=== PATIENT | female | born 1950 | race Hispanic/Latino ===

== ENCOUNTER 2017-10-02 08:51 | Outpatient (CLI) | payer OTHER | END 2017-10-02 08:52 | disposition home or self-care (01) | LOC: BICMAMMO 08:51 | PROVIDERS: ATTEND Physician Assistant | DX: Z12.31 Encounter for screening mammogram for malignant neoplasm of breast (principal) | CPT/HCPCS: 77063; 77067 ==

== ENCOUNTER 2018-10-19 11:16 | Outpatient (CLI) | payer MEDICARE, OTHER ==
--- NOTE | 2018-10-19 13:03 | MMO ---
Bilateral MAMMO Bilat Screen [facility]. CLINICAL HISTORY: Patient is 67 years old and is seen for screening. The patient has no family history of breast cancer. The patient has no personal history of cancer. The patient has a history of right Excisional Biopsy more than 10 years ago - benign. VIEWS: The views performed were: bilateral craniocaudal with tomosynthesis and bilateral mediolateral oblique with tomosynthesis. FILMS COMPARED: The present examination has been compared to prior imaging studies performed at [facility] on 07/07/2013, 07/10/2014, 07/31/2015, 09/19/2016 and 10/02/2017. MAMMOGRAM FINDINGS: There are scattered fibroglandular densities. Finding 1: There is a stable nodule seen in the left breast. Finding 2: There are stable post operative changes seen in the right breast. A biopsy clip is seen in the right breast. There are no suspicious masses, suspicious calcifications, or new areas of architectural distortion. IMPRESSION: THERE IS NO MAMMOGRAPHIC EVIDENCE OF MALIGNANCY. A ROUTINE FOLLOW-UP MAMMOGRAM IN 1 YEAR IS RECOMMENDED. THE RESULTS OF THIS EXAM WERE SENT TO THE PATIENT. ACR BI-RADS Category 2 - Benign finding MAMMOGRAPHY NOTE: 1. A negative mammogram report should not delay a biopsy if a dominant of clinically suspicious mass is present. 2. Approximately 10% to 15% of breast cancers are not detected by mammography. 3. Adenosis and dense breasts may obscure an underlying neoplasm.
== END 2018-10-19 11:17 | disposition home or self-care (01) ==
LOC: BICMAMMO 11:16
PROVIDERS: ATTEND Physician Assistant
DX: Z12.31 Encounter for screening mammogram for malignant neoplasm of breast (principal)
CPT/HCPCS: 77063; 77067

== ENCOUNTER 2019-04-04 09:53 | Outpatient (CLI) | payer MEDICARE, OTHER ==
--- NOTE | 2019-04-04 10:46 | CT ---
CLINICAL HISTORY: Left upper quadrant pain for a month. TECHNIQUE: Multiple contiguous axial images were obtained and a CT of the abdomen without and with IV contrast. Postcontrast images were obtained in the arterial and portal venous phases. Coronal and sagittal reformats were performed. COMPARISON: None. FINDINGS: Liver: Size: Normal. Contour: Smooth. Mass: None. Gallbladder and biliary system: Status post cholecystectomy. No biliary ductal dilatation. Spleen: Normal. Pancreas: Normal. Kidneys: Normal. Adrenal glands: Normal. GI tract: Normal. Status post gastric surgery. Abdominal aorta and its major branches: Normal. No aneurysm. Peritoneum/retroperitoneum: Normal. No ascites. No adenopathy. Body wall and musculoskeletal: Degenerative changes in the spine. Visualized lower thorax: Normal. No pulmonary parenchymal mass or pleural effusion. IMPRESSION: No significant abnormality
== END 2019-04-04 09:54 | disposition home or self-care (01) ==
LOC: BICCT 09:53
PROVIDERS: ATTEND Physician Assistant
DX: R10.12 Left upper quadrant pain (principal)
CPT/HCPCS: 74170

== ENCOUNTER 2020-03-01 10:35 | Outpatient (CLI) | payer MEDICARE ==
--- NOTE | 2020-03-01 11:10 | BD ---
EXAM: Bone densitometry using DEXA HISTORY: 69 yo female. Screening for postmenopausal osteoporosis FINDINGS: L1--bone mineral density 0.926 g/sq cm; T score -0.6 ; Z score 1.1 L2--bone mineral density 1.105 g/sq cm; T score 0.7 ; Z score 2.6 L3--bone mineral density 1.073 g/sq cm; T score -0.1 ; Z score 1.9 L4--bone mineral density 1.118 g/sq cm; T score 0.5 ; Z score 2.6 Total L1-L4--bone mineral density 1.061 g/sq cm; T score 0.1 ; Z score 2.0 Left femoral neck--bone mineral density0.670; T score -1.6 ; Z score 0.0 Total proximal left femur--bone mineral density 0.950; T score 0.1 ; Z score 1.4 The 10 year fracture risk for a major osteoporotic fracture is 9.2% and for a hip fracture is 1.1%. IMPRESSION: Osteopenia
== END 2020-03-01 10:36 | disposition home or self-care (01) ==
LOC: BICMAMMO 10:35
PROVIDERS: ATTEND Physician Assistant
DX: Z13.820 Encounter for screening for osteoporosis (principal); M85.852 Other specified disorders of bone density and structure, left thigh; Z78.0 Asymptomatic menopausal state
CPT/HCPCS: 77080

== ENCOUNTER 2021-04-08 14:03 | Outpatient (CLI) | payer MEDICARE | END 2021-04-08 14:04 | disposition home or self-care (01) | LOC: BICMAMMO 14:03 | PROVIDERS: ATTEND Physician Assistant | DX: Z12.31 Encounter for screening mammogram for malignant neoplasm of breast (principal); Z91.89 Other specified personal risk factors, not elsewhere classified | CPT/HCPCS: 77063; 77067 ==

== ENCOUNTER 2022-05-19 10:21 | Outpatient (CLI) | payer MEDICARE | END 2022-05-19 10:22 | disposition home or self-care (01) | LOC: BICMAMMO 10:21 | PROVIDERS: ATTEND Physician Assistant | DX: Z12.31 Encounter for screening mammogram for malignant neoplasm of breast (principal); Z13.820 Encounter for screening for osteoporosis; Z78.0 Asymptomatic menopausal state; M85.89 Other specified disorders of bone density and structure, multiple sites; Z91.89 Other specified personal risk factors, not elsewhere classified | CPT/HCPCS: 77063; 77067; 77080 ==

== ENCOUNTER 2024-04-17 13:18 | Emergency (ER) | payer MEDICARE ==
[2024-04-17 14:18] LABS: #Basophils 0.05 10x3/uL (0.0-0.2); %Basophils 0.8 % (0.0-1.0); %Eosinophils 3.8 % (0.0-10.0); %Lymphocytes 28.1 % (21.0-51.0); %Monocytes 7.2 % (0.0-10.0); %Neutrophils 59.9 % (42.0-75.0); Hematocrit 34.8 % (36.0-47.0); Hemoglobin 11.2 g/dL (12.0-16.0); Mean Corpuscular HGB CONC 32.2 g/dL (32.0-36.0); Mean Corpuscular Hemoglobin 25.7 pg (27.0-31.0); Mean Corpuscular Volume 79.8 fL (78.0-98.0); Mean Platelet Volume 9.9 fL (7.4-10.4); Platelet Count 301 10x3/uL (130-400); RBC Distribution Width 15.5 % (11.5-14.5); Red Blood Cell (RBC) Count 4.36 mill/uL (4.20-5.40)
[2024-04-17 14:55] LABS: ALT (SGPT) 14 U/L (8-55); AST (SGOT) 24 U/L (5-34); Albumin 3.5 g/dL (3.4-4.8); Alkaline Phosphatase 66 U/L (40-110); Anion Gap 14 mmol/L (10-20); BUN (Urea Nitrogen) 10 mg/dL (9.8-20.1); Bilirubin, Total 0.3 mg/dL (0.2-1.2); Calc. Creatinine Clearance 0 mL/min (70-130); Calcium 9.4 mg/dL (7.8-10.44); Carbon Dioxide 25 mmol/L (23-31); Chloride 101 mmol/L (98-107); Estimated GFR 53; Globulin 3.3 g/dL (2.4-3.5); Glucose 117 mg/dL (83-110); Lipase 25 U/L (8-78); Potassium 4.7 mmol/L (3.5-5.1); Protein, Total 6.8 g/dL (5.8-8.1); Sodium 135 mmol/L (136-145)
[2024-04-17 14:58] LABS: Troponin I Less than 0.010 ng/mL (< 0.028)
== END 2024-04-17 17:58 | disposition home or self-care (01) ==
LOC: ERS 13:18
DX: K21.9 Gastro-esophageal reflux disease without esophagitis (principal); R07.89 Other chest pain; I10 Essential (primary) hypertension; Z79.82 Long term (current) use of aspirin; Z79.899 Other long term (current) drug therapy
CPT/HCPCS: 36415; 71045; 80053; 83690; 84484; 85025; 93005

== ENCOUNTER 2024-04-25 08:22 | Outpatient (CLI) | payer MEDICARE ==
[2024-04-25] MEDS ORDERED: E-Z-HD 98% W/W 340GM BOT (x-ray ONLY) ONE (08:43)
[2024-04-25] MEDS ORDERED: Barium Sulfate 96% 176 GM BOT (xray ONLY) ONE (08:43)
== END 2024-04-25 08:23 | disposition home or self-care (01) ==
LOC: RAD 08:22
PROVIDERS: ATTEND Physician Assistant
DX: K22.2 Esophageal obstruction (principal); K44.9 Diaphragmatic hernia without obstruction or gangrene; Z98.84 Bariatric surgery status
CPT/HCPCS: 74220

== ENCOUNTER 2024-06-02 11:46 | Outpatient (CLI) | payer MEDICARE | END 2024-06-02 11:47 | disposition home or self-care (01) | LOC: BICMAMMO 11:46 | PROVIDERS: ATTEND Physician Assistant | DX: Z12.31 Encounter for screening mammogram for malignant neoplasm of breast (principal); Z91.89 Other specified personal risk factors, not elsewhere classified | CPT/HCPCS: 77063; 77067 ==

== ENCOUNTER 2025-01-24 15:11 | Outpatient (CLI) | payer MEDICARE | END 2025-01-24 15:12 | disposition home or self-care (01) | LOC: BICULT 15:11 | PROVIDERS: ATTEND Family Medicine | DX: N39.0 Urinary tract infection, site not specified (principal) | CPT/HCPCS: 76770 ==

== ENCOUNTER 2025-05-04 13:39 | Outpatient (CLI) | payer MEDICARE | END 2025-05-04 13:40 | disposition home or self-care (01) | LOC: BICMAMMO 13:39 | PROVIDERS: ATTEND Physician Assistant | DX: Z78.0 Asymptomatic menopausal state (principal); M85.851 Other specified disorders of bone density and structure, right thigh; M85.852 Other specified disorders of bone density and structure, left thigh | CPT/HCPCS: 77080 ==

== ENCOUNTER 2025-06-05 08:56 | Outpatient (CLI) | payer MEDICARE | END 2025-06-05 08:57 | disposition home or self-care (01) | LOC: BICMAMMO 08:56 | PROVIDERS: ATTEND Physician Assistant | DX: Z12.31 Encounter for screening mammogram for malignant neoplasm of breast (principal); Z91.89 Other specified personal risk factors, not elsewhere classified | CPT/HCPCS: 77063; 77067 ==